=== PATIENT | male | born 1965 | race Caucasian/White ===

== ENCOUNTER 2018-03-02 19:32 | Emergency (ER) | payer MEDICAID ==
[2018-03-02 20:03] VITALS: BP 123/72; PULSE 89; RESP 18; TEMP 98.8; O2SAT 98
--- NOTE | 2018-03-02 21:28 | C.PDOC ---
History Of Present Illness 52 year old male presents to the ER with a complaint of intermittent left shoulder pain that radiates to the left forearm for the past 1 week. 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 Denies chest pain, SOB, dizziness , diaphoresis, or palpitation. Time Seen by Provider: 03/02/18 20:09 Chief Complaint (Nursing): Upper Extremity Problem/Injury History Per: Patient History/Exam Limitations: no limitations Onset/Duration Of Symptoms: Days, Intermittent Episodes Current Symptoms Are (Timing): Still Present Exacerbating Factor(s): Movement, Other (Driving) Recent travel outside of the [place]: No Past Medical History Reviewed: Historical Data, Nursing Documentation, Vital Signs Vital Signs: Last Vital Signs Temp 98.8 F 03/02/18 19:59 Pulse 89 03/02/18 19:59 Resp 18 03/02/18 19:59 BP 123/72 03/02/18 19:59 Pulse Ox 98 03/02/18 22:17 - Medical History PMH: Hypercholesterolemia Family History: States: Unknown Family Hx - Social History Hx Alcohol Use: No Hx Substance Use: No - Immunization History Hx Tetanus Toxoid Vaccination: No Hx Influenza Vaccination: No Hx Pneumococcal Vaccination: No Review Of Systems Constitutional: Negative for: Sweats Cardiovascular: Negative for: Chest Pain, Palpitations Respiratory: Negative for: Shortness of Breath Musculoskeletal: Positive for: Shoulder Pain Neurological: Negative for: Weakness, Numbness, Dizziness Physical Exam - Physical Exam Appears: Non-toxic Skin: Normal Color, Warm, Dry Head: Atraumatic, Normacephalic Eye(s): bilateral: Normal Inspection Oral Mucosa: Moist Chest: Symmetrical, No Tenderness Cardiovascular: Rhythm Regular Respiratory: Normal Breath Sounds, No Rales, No Rhonchi, No Wheezing Gastrointestinal/Abdominal: Soft, No Tenderness Extremity: Tenderness (Left anterior shoulder on palpation and motion), Capillary Refill (<2 seconds), Other (ROM of left shoulder intact with pain) Pulses: Left Radial: Normal, Right Radial: Normal Neurological/Psych: Oriented x3, Normal Speech, Normal Motor, Normal Sensation ED Course And Treatment ECG: Interpreted By Me, Viewed By Me ECG Rhythm: Sinus Rhythm ECG Interpretation: Normal Interpretation Of ECG: No ST/T changes Rate From EC O2 Sat by Pulse Oximetry: 98 (room air) Pulse Ox Interpretation: Normal Progress Note: Motrin administered for pain with relief. Based on patient's history and physical exam, there is little suspicion for cardiac cause of this pain, he is resting comfortably in the ER in no acute distress, vitals are stable, will discharge home with instructions to follow up with PMD. Return precautions discussed and understood by pt Disposition Counseled Patient/Family Regarding: Diagnosis, Need For Followup, Rx Given - Disposition Disposition: HOME/ ROUTINE Disposition Time: 21:24 Condition: STABLE Additional Instructions: Please follow up with PMD Take meds as directed Return to ER if worse Prescriptions: Ibuprofen [Motrin] 600 mg PO Q6H #24 tab Instructions: Shoulder Pain (DC) Forms: [employer] (Irish) - Clinical Impression Clinical Impression: Left shoulder pain - PA / [employer] / Resident Statement MD/DO has reviewed & agrees with the documentation as recorded. - Scribe Statement The provider has reviewed the documentation as recorded by the Scribe Og Montano All medical record entries made by the Scribe were at my direction and personally dictated by me. I have reviewed the chart and agree that the record accurately reflects my personal performance of the history, physical exam, medical decision making, and the department course for this patient. I have also personally directed, reviewed, and agree with the discharge instructions and disposition.
--- NOTE | 2018-03-04 20:03 | CARD ---
APPROVED REPORT EKG Measurement Heart [id number] <Conclusion> Normal sinus rhythm Normal ECG
== END 2018-03-02 21:33 | disposition home or self-care (01) ==
LOC: SUPCPDRO 19:32 → C.ER 19:32
DX: M25.512 Pain in left shoulder (principal); E78.00 Pure hypercholesterolemia, unspecified